=== PATIENT | male | born 1970 | race American Indian/Alaskan Native ===

== ENCOUNTER 2019-11-25 07:45 | Emergency (ER) | payer OTHER ==
[2019-11-25 07:58] VITALS: BP 127/75
[2019-11-25] MEDS ORDERED: SODIUM CHLORIDE 0.9% 1000 ML 1,000 ML IV ONE (09:47)
[2019-11-25] MEDS ORDERED: ONDANSETRON 4 MG/2 ML INJ IV ONE (09:47)
--- NOTE | 2019-11-25 09:53 | Emergency Department Report ---
{null, ED Abdominal Pain HPI - General Chief Complaint: Abdominal Pain Stated Complaint: ABD PAIN/SOB Source: patient Mode of arrival: Ambulatory Limitations: No Limitations - History of Present Illness Initial Comments: This is a pleasant 49-year-old male who presents to the emergency department with a chief complaint of right lower quadrant abdominal pain. Patient reports this started last night. He states he was on the toilet trying to have a bowel movement when he started to feel intense sharp pain in the right lower quadrant that started suddenly. He then tried to stand up and started to feel his heart racing, started to feel a headache, dizziness that he described as li ghtheadedness and this caused him to faint. He woke up on the ground with one hand in the toilet the other hand on the ground. He reports he hit his forehead and nasal bridge on the ground. He reports he was then able to get up under his own power and got back on the toilet and had a large amount of diarrhea. He states the pain in his right lower quadrant then subsided. He has a past medical history of gastric bypass surgery, has had his appendix and his gallbladder removed. He denies any recent surgery. He denies any fever, chills, night sweats, headache, dizziness, blurry vision, chest pain, shortness of breath, nausea, vomiting, melena, hematochezia, hematemesis. Patient denies any recent antibiotics or recent travel. He denies any recent camping. - Related Data Previous Rx's Medication Instructions Recorded Last Taken Type Omeprazole 20 mg PO QDAY #30 tab 11/25/19 Unknown Rx Sucralfate [Carafate] 1 gm PO ACHS #30 tablet 11/25/19 Unknown Rx Allergies Allergy/AdvReac Type Severity Reaction Status Date / Time No Known Allergies Allergy Unverified 11/25/19 07:52 ED Review of Systems ROS: Stated complaint: ABD PAIN/SOB Other details as noted in HPI Comment: All other systems reviewed and negative Constitutional: denies: chills, fever Eyes: denies: eye pain, eye discharge, vision change ENT: denies: ear pain, throat pain Respiratory: denies: cough, shortness of breath, wheezing Cardiovascular: denies: chest pain, palpitations Endocrine: no symptoms reported Gastrointestinal: as per HPI, abdominal pain, diarrhea. denies: nausea Genitourinary: denies: urgency, dysuria Musculoskeletal: denies: back pain, joint swelling, arthralgia Skin: denies: rash, lesions Neurological: as per HPI, headache. denies: weakness, paresthesias Psychiatric: denies: anxiety, depression Hematological/Lymphatic: denies: easy bleeding, easy bruising ED Past Medical Hx - Past Medical History Previous Medical History?: No - Surgical History Past Surgical History?: Yes Hx Cholecystectomy: Yes Hx Appendectomy: Yes Additional Surgical History: Gastric Bypass - Social History Smoking Status: Never Smoker Substance Use Type: None - Medications Home Medications: Home Medications Medication Instructions Recorded Confirmed Last Taken Type Omeprazole 20 mg PO QDAY #30 tab.rap.dr 11/25/19 Unknown Rx Sucralfate [Carafate] 1 gm PO ACHS #30 tablet 11/25/19 Unknown Rx ED Physical Exam - General Limitations: No Limitations General appearance: alert, in no apparent distress - Head Head exam: Present: atraumatic, normocephalic, other (Negative hernandez sign, negative raccoon eyes, no hematoma, no tenderness over the nasal bridge, orbital rim, mandible, maxilla, no depressed skull fracture.) - Eye Eye exam: Present: normal appearance, PERRL, EOMI, other (Normal extraocular movements without pain.) Pupils: Present: normal accommodation - ENT ENT exam: Present: normal exam, normal orophraynx, mucous membranes moist - Neck Neck exam: Present: normal inspection, full ROM, other (No midline tenderness with normal full range of motion without pain.). Absent: tenderness, meningismus - Respiratory Respiratory exam: Present: normal lung sounds bilaterally. Absent: respiratory distress, wheezes, rales, rhonchi, stridor, chest wall tenderness - Cardiovascular Cardiovascular Exam: Present: regular rate, normal rhythm, normal heart sounds. Absent: systolic murmur, diastolic murmur, rubs, gallop - GI/Abdominal GI/Abdominal exam: Present: soft, tenderness (Tenderness to the right lower quadrant, no rebound or guarding), normal bowel sounds. Absent: distended, guarding, rebound, rigid - Rectal Rectal exam: Present: deferred - Extremities Exam Extremities exam: Present: normal inspection. Absent: full ROM, tenderness, normal capillary refill, calf tenderness (Negative Homans sign bilaterally.) - Back Exam Back exam: Present: normal inspection, full ROM. Absent: tenderness, CVA tende rness (L) - Neurological Exam Neurological exam: Present: alert, oriented X3, normal gait, other (Normal strength and sensation to the bilateral upper and lower extremities, normal [id number] and [id number]-ln-[id number], no focal neurologic deficits.) - Psychiatric Psychiatric exam: Present: normal affect, normal mood - Skin Skin exam: Present: warm, dry, intact, normal color. Absent: rash ED Course Vital Signs 11/25/19 07:57 Temperature 97.9 F Pulse Rate 61 Respiratory 16 Rate Blood Pressure 127/75 [Right] O2 Sat by Pulse 97 Oximetry ED Medical Decision Making - Lab Data Result diagrams: 11/25/19 10:15 11/25/19 10:15 Lab Results 11/25/19 11/25/19 11/25/19 Range/Units 10:15 10:15 10:15 WBC 4.4 L (4.5-11.0) K/mm3 RBC 4.34 (3.65-5.03) M/mm3 Hgb 11.8 (11.8-15.2) gm/dl Hct 36.2 (35.5-45.6) % MCV 83 L (84-94) fl MCH 27 L (28-32) pg MCHC 33 (32-34) % RDW 14.7 (13.2-15.2) % Plt Count 174 (140-440) K/mm3 Lymph % (Auto) 28.7 (13.4-35.0) % [place] % (Auto) 11.9 H (0.0-7.3) % Eos % (Auto) 0.6 (0.0-4.3) % Baso % (Auto) 0.8 (0.0-1.8) % Lymph # 1.3 (1.2-5.4) K/mm3 [place] # 0.5 (0.0-0.8) K/mm3 Eos # 0.0 (0.0-0.4) K/mm3 Baso # 0.0 (0.0-0.1) K/mm3 Seg Neutrophils % 58.0 (40.0-70.0) % Seg Neutrophils # 2.5 (1.8-7.7) K/mm3 Sodium 145 (137-145) mmol/L Potassium 3.2 L (3.6-5.0) mmol/L Chloride 114.3 H (98-107) mmol/L Carbon Dioxide 19 L (22-30) mmol/L Anion Gap 15 mmol/L BUN 9 (9-20) mg/dL Creatinine 0.6 L (0.8-1.5) mg/dL Estimated GFR > 60 ml/min BUN/Creatinine Ratio 15 % Glucose 83 (75-100) mg/dL Calcium 6.6 L (8.4-10.2) mg/dL Total Bilirubin 0.50 (0.1-1.2) mg/dL Direct Bilirubin < 0.2 (0-0.2) mg/dL Indirect Bilirubin 0.3 mg/dL AST 17 (5-40) units/L ALT 8 (7-56) units/L Alkaline Phosphatase 45 (35-129) units/L Troponin T (0.00-0.029) ng/mL Total Protein 5.5 L (6.3-8.2) g/dL Albumin 3.1 L (3.9-5) g/dL Albumin/Globulin Ratio 1.3 % Lipase 18 (13-60) units/L Urine Color Yellow (Yellow) Urine Turbidity Clear (Clear) Urine pH 6.0 (5.0-7.0) Ur Specific [place] 1.021 (1.003-1.030) Urine Protein <15 mg/dl (Negative) mg/dL Urine Glucose (UA) Neg (Negative) mg/dL Urine Ketones Neg (Negative) mg/dL Urine Blood Neg (Negative) Urine Nitrite Neg (Negative) Urine Bilirubin Neg (Negative) Urine Urobilinogen 4.0 (<2.0) mg/dL Ur Leukocyte Esterase Neg (Negative) Urine WBC (Auto) < 1.0 (0.0-6.0) /HPF Urine RBC (Auto) < 1.0 (0.0-6.0) /HPF 11/25/19 Range/Units 10:15 WBC (4.5-11.0) K/mm3 RBC (3.65-5.03) M/mm3 Hgb (11.8-15.2) gm/dl Hct (35.5-45.6) % MCV (84-94) fl MCH (28-32) pg MCHC (32-34) % RDW (13.2-15.2) % Plt Count (140-440) K/mm3 Lymph % (Auto) (13.4-35.0) % [place] % (Auto) (0.0-7.3) % Eos % (Auto) (0.0-4.3) % Baso % (Auto) (0.0-1.8) % Lymph # (1.2-5.4) K/mm3 [place] # (0.0-0.8) K/mm3 Eos # (0.0-0.4) K/mm3 Baso # (0.0-0.1) K/mm3 Seg Neutrophils % (40.0-70.0) % Seg Neutrophils # (1.8-7.7) K/mm3 Sodium (137-145) mmol/L Potassium (3.6-5.0) mmol/L Chloride (98-107) mmol/L Carbon Dioxide (22-30) mmol/L Anion Gap mmol/L BUN (9-20) mg/dL Creatinine (0.8-1.5) mg/dL Estimated GFR ml/min BUN/Creatinine Ratio % Glucose (75-100) mg/dL Calcium (8.4-10.2) mg/dL Total Bilirubin (0.1-1.2) mg/dL Direct Bilirubin (0-0.2) mg/dL Indirect Bilirubin mg/dL AST (5-40) units/L ALT (7-56) units/L Alkaline Phosphatase (35-129) units/L Troponin T < 0.010 (0.00-0.029) ng/mL Total Protein (6.3-8.2) g/dL Albumin (3.9-5) g/dL Albumin/Globulin Ratio % Lipase (13-60) units/L Urine Color (Yellow) Urine Turbidity (Clear) Urine pH (5.0-7.0) Ur Specific [place] (1.003-1.030) Urine Protein (Negative) mg/dL Urine Glucose (UA) (Negative) mg/dL Urine Ketones (Negative) mg/dL Urine Blood (Negative) Urine Nitrite (Negative) Urine Bilirubin (Negative) Urine Urobilinogen (<2.0) mg/dL Ur Leukocyte Esterase (Negative) Urine WBC (Auto) (0.0-6.0) /HPF Urine RBC (Auto) (0.0-6.0) /HPF - EKG Data -: EKG Interpreted by Me EKG shows normal: sinus rhythm Rate: normal - EKG Data When compared to previous EKG there are: previous EKG unavailable 11/25/19 11:[address] or T wave abnormalities, no STEMI, normal axis, normal intervals, no ectopy, - Radiology Data Radiology results: report reviewed Cat Scan Report Signed Patient: HEAVEN HODGES MR#: [id number] : 1970 Acct:[id number] Age/Sex: 49 / M ADM Date: 11/25/19 Loc: ED Attending Dr: Ordering Physician: HAILEY STALEY Date of Service: 11/25/19 Procedure(s): CT abdomen pelvis w con Accession Number(s): [id number] cc: HAILEY STALEY CT ABDOMEN AND PELVIS WITH CONTRAST INDICATION / CLINICAL INFORMATION: Abdominal Pain. TECHNIQUE: Axial CT images were obtained through the abdomen and pelvis after 100 mL's 300 mg percent Omnipaque IV contrast. All CT scans at this location are performed using CT dose reduction for ALARA by means of automated exposure control. COMPARISON: None available. FINDINGS: LOWER CHEST: No significant abnormality. Hiatal hernia is present. LIVER: No significant abnormality. GALLBLADDER: Previous cholecystectomy BILE DUCTS: No significant abnormality. PANCREAS: No significant abnormality. SPLEEN: No significant abnormality. ADRENALS: No significant abnormality. RIGHT KIDNEY and URETER: No significant abnormality. LEFT KIDNEY and URETER: No significant abnormality. STOMACH and SMALL BOWEL: Surgical changes involving the stomach COLON: No significant abnormality. APPENDIX: Not identified. PERITONEUM: Anterior abdominal wall defect present with herniation of fat. The gastrointestinal contents extend into the posterior aspect of the herniation without evidence of strangulation or obstruction No free fluid. No free air. No fluid collection. LYMPH NODES: No significant adenopathy. AORTA and ARTERIES: No significant abnormality. IVC and VEINS: No significant abnormality. URINARY BLADDER: No significant abnormality. REPRODUCTIVE ORGANS: No significant abnormality. ADDITIONAL FINDINGS: None. SKELETAL SYSTEM: No significant abnormality. IMPRESSION: 1. No acute abnormality identified 2. Ventral wall defect 3. Hiatal hernia Signer Name: Brian Cervantes MD Signed: 11/25/2019 12:02 PM Workstation Name: [id number] Transcribed By: DEVON Dictated By: Brian Cervantes MD Electronically Authenticated By: Brian Cervantes MD Signed Date/Time: 11/25/19 1202 Cat Scan Report Signed Patient: HEAVEN HODGES MR#: [id number] : 1970 Acct:[id number] Age/Sex: 49 / M ADM Date: 11/25/19 Loc: ED Attending Dr: Ordering Physician: HAILEY STALEY Date of Service: 11/25/19 Procedure(s): CT head/brain wo con Accession Number(s): [id number] cc: HAILEY STALEY CT BRAIN: 11/25/2019 INDICATION / CLINICAL INFORMATION: head injury, syncope. COMPARISON: None available. FINDINGS: BRAIN/INTRACRANIAL STRUCTURES: Unenhanced CT images of the brain demonstrate no evidence of acute intracranial abnormality. Ventricles and sulci are normal in size and shape. There is no evidence of hemorrhage or mass. There are no abnormal extra-axial fluid collections. EXTRACRANIAL STRUCTURES: Unremarkable. IMPRESSION: Negative unenhanced CT of the brain. All CT scans at this location are performed using dose reduction to ALARA by means of automated exposure control. Signer Name: Mejia Michelle MD Signed: 11/25/2019 11:52 AM Workstation Name: [id number] Transcribed By: MARY Dictated By: Mejia Michelle MD Electronically Authenticated By: Mejia Michelle MD Signed Date/Time: 11/25/19 0120 - Medical Decision Making Patient is nontoxic in no acute distress. Vitals are stable. EKG was unremarkable with a negative troponin making atypical ACS unlikely. Patient was not having any chest pain or shortness of breath. Patient is PERC negative and had a low risk Wells criteria making PE unlikely. There was no evidence of prolonged QT, Brug[place], heart block or irregular rhythm on EKG that could have been the source of his syncope. I suspect due to him being on the toilet and straining and then standing up he may have had an episode of orthostatic hypotension or vasovagal syncope. Labs were relatively normal other than a mild hypokalemia. CT of the abdomen was relatively normal other than a ventral hernia and a hiatal hernia that were uncomplicated with no evidence of str angulation or incarceration. CT of the head was ordered and negative making an acute intracranial injury unlikely. I recommended that the patient follow-up with GI, surgery and cardiology and return to emergency department any changing or worsening symptoms. He verbalized understanding of the diagnosis, treatment plan and follow-up instructions and all of his questions were answered. - Differential Diagnosis concussion, vasovagal syncope, fracture, diverticuliutis Critical care attestation.: If time is entered above; I have spent that time in minutes in the direct care of this critically ill patient, excluding procedure time. ED Disposition Clinical Impression: Hypokalemia Syncope Qualifiers: Syncope type: unspecified Qualified Code(s): R55 - Syncope and collapse Diarrhea Qualifiers: Diarrhea type: unspecified type Qualified Code(s): R19.7 - Diarrhea, unspecified Disposition: DC- TO HOME OR SELFCARE Is pt being admited?: No Condition: Stable Instructions: Syncope (ED), Acute Diarrhea (ED) Prescriptions: Sucralfate [Carafate] 1 gm PO ACHS #30 tablet Omeprazole 20 mg PO QDAY #30 tab. Referrals: [facility]IMARY [facility] [Primary Care Provider] - 3-5 Days [facility] [Provider Group] - 3-5 Days [facility] [Provider Group] - 3-5 Days Forms: Work/School Release Form(ED) Time of Disposition: 12:26 }
[2019-11-25 10:48] LABS: Bilirubin,Urine NEG (Negative); Blood,Urine NEG (Negative); Color,Urine Yellow (Yellow); Protein,Urine <15 mg/dL mg/dL (Negative); RBC,Urine < 1.0 /HPF (0.0-6.0)
[2019-11-25 10:50] LABS: Basophils % (Auto) 0.8 % (0.0-1.8); Eosinophils % (Auto) 0.6 % (0.0-4.3); Hematocrit 36.2 % (35.5-45.6); Hemoglobin 11.8 gm/dl (11.8-15.2); Lymphocytes # (Auto) 1.3 K/mm3 (1.2-5.4); Lymphocytes % (Auto) 28.7 % (13.4-35.0); Mean Corpuscular HGB Conc 33 % (32-34); Mean Corpuscular Volume 83 fl (84-94); Monocytes # (Auto) 0.5 K/mm3 (0.0-0.8); Monocytes % (Auto) 11.9 % (0.0-7.3); Platelet Count 174 K/mm3 (140-440); Red Blood Count 4.34 M/mm3 (3.65-5.03); Red Cell Distribution Width 14.7 % (13.2-15.2)
[2019-11-25 11:05] LABS: WBC,Urine < 1.0 /HPF (0.0-6.0)
[2019-11-25 11:07] LABS: Alanine Aminotransferase 8 units/L (7-56); Albumin 3.1 g/dL (3.9-5); BUN/Creatinine Ratio 15; Blood Urea Nitrogen 9 mg/dL (9-20); Calcium 6.6 mg/dL (8.4-10.2); Hemolysis Index 5
[2019-11-25 11:19] LABS: Bilirubin,Direct < 0.2 mg/dL (0-0.2)
[2019-11-25] MEDS ORDERED: POTASSIUM CHLORIDE ER 20 MEQ TAB PO ONE (11:26)
--- NOTE | 2019-11-25 11:57 | Cat Scan Report ---
{null, CT BRAIN: 11/25/2019 INDICATION / CLINICAL INFORMATION: head injury, syncope. COMPARISON: None available. FINDINGS: BRAIN/INTRACRANIAL STRUCTURES: Unenhanced CT images of the brain demonstrate no evidence of acute int racranial abnormality. Ventricles and sulci are normal in size and shape. There is no evidence of hemorrhage or mass. There are no abnormal extra-axial fluid collections. EXTRACRANIAL STRUCTURES: Unremarkable. IMPRESSION: Negative unenhanced CT of the brain. All CT scans at this location are performed using dose reduction to ALARA by means of automated expos ure control. Signer Name: Mejia Michelle MD Signed: 11/25/2019 11:52 AM Workstation Name: [employer] }
--- NOTE | 2019-11-25 12:06 | Cat Scan Report ---
{null, CT ABDOMEN AND PELVIS WITH CONTRAST INDICATION / CLINICAL INFORMATION: Abdominal Pain. TECHNIQUE: Axial CT images were obtained through the abdomen and pelvis after 100 mL's 300 mg percent Omnipaque IV contrast. All CT scans at this location are performed using CT dose reduction for ALARA by means of automated exposure control. COMPARISON: None available. FINDINGS: LOWER CHEST: No significant abnormality. Hiatal hernia is present. LIVER: No significant abnormality. GALLBLADDER: Previous cholecystectomy BILE DUCTS: No significant abnormality. PANCREAS: No significant abnormality. SPLEEN: No significant abnormality. ADRENALS: No significant abnormality. RIGHT KIDNEY and URETER: No significant abnormality. LEFT KIDNEY and URETER: No significant abnormality. STOMACH and SMALL BOWEL: Surgical changes involving the stomach COLON: No significant abnormality. APPENDIX: Not identified. PERITONEUM: Anterior abdominal wall defect present with herniation of fat. The gastrointestinal axel nts extend into the posterior aspect of the herniation without evidence of strangulation or obstructi on No free fluid. No free air. No fluid collection. LYMPH NODES: No significant adenopathy. AORTA and ARTERIES: No significant abnormality. IVC and VEINS: No significant abnormality. URINARY BLADDER: No significant abnormality. REPRODUCTIVE ORGANS: No significant abnormality. ADDITIONAL FINDINGS: None. SKELETAL SYSTEM: No significant abnormality. IMPRESSION: 1. No acute abnormality identified 2. Ventral wall defect 3. Hiatal hernia Signer Name: Brian Cervantes MD Signed: 11/25/2019 12:02 PM Workstation Name: [id number] }
== END 2019-11-25 13:10 | disposition home or self-care (01) ==
LOC: ED 07:45
DX: E87.6 Hypokalemia (principal); R55 Syncope and collapse; R19.7 Diarrhea, unspecified; Z90.49 Acquired absence of other specified parts of digestive tract; Z98.84 Bariatric surgery status; Z79.899 Other long term (current) drug therapy
CPT/HCPCS: 36415; 70450; 74177; 80048; 80076; 81001; 83690; 84484; 85025; 93005; 93010; 96361; 96374; 99284; J2405; J7030